=== PATIENT | female | born 2000 | race Caucasian/White ===

== ENCOUNTER 2021-08-22 06:49 | Inpatient (IN) ==
--- NOTE | 2021-08-22 07:41 | Emergency Department Note ---
History of Present Illness General Chief complaint: Mental Health Evaluation Stated complaint: MHID, THOUGHTS OF SELF HARM Time Seen by Provider: 08/22/21 07:06 History of Present Illness 20-year-old female presents to the ED with a chief complaint of depression and suicidal ideation. The patient states that she has been depressed for weeks. She states that she graduated from college with a degree in criminal justice. She states that she planned to go to law school but did not get in. She reports that she is depressed about her future. She feels like she is not living up to her own expectations or the expectations of others. She is not sleeping well. She has been considering overdosing and possibly killing herself on Benadryl. The patient does report a history of family bipolar disease in her mother. She states that she feels like she might have the same. She was seen earlier this morning after becoming intoxicated. Her blood alcohol level was a little over 200. She states that she was discharged but just sat in the waiting room and then check back in for her mental health. Home Medications Medication Instructions Recorded Confirmed Type L norgest/E estradiol-E estrad 1 tab PO QAM 04/26/20 08/22/21 History 0.15 mg-30 mcg (84)/10 mcg(7) tabs,3mos (Camrese) Allergies Allergy/AdvReac Type Severity Reaction Status Date / Time No Known Allergies Allergy Verified 08/11/21 14:24 Past Med/Surg History Medical History History of kidney infection History of UTI Migraine without aura Surgical History No history of previous surgery S/P wisdom tooth extraction Family History Mother Breast cancer, Onset Age: 46 reports got genetic testing and was neg Aunt Breast cancer great aunt Denies family history of Ovarian cancer Colorectal cancer Uterine cancer Social History Smoking Status: Current every day smoker Tobacco Type: E-cigarettes / Vaping Preferred Language: Korean Feels Safe at Home: Yes Review of Systems A total of 10 systems reviewed and were otherwise negative Physical Exam Vital Signs Vital Signs - 24 hr 08/22/21 06:53 08/22/21 12:00 Temperature 36.9 C Temperature Source Skin Pulse Rate 100 H Pulse Rate [Finger] 92 H Respiratory Rate 18 16 Blood Pressure 124/77 Blood Pressure [Left Arm] 110/75 Blood Pressure Mean 92 Blood Pressure Mean [Left Arm] 86 Pulse Oximetry 98 98 Oxygen Delivery Method Room Air Room Air Sepsis Recent Fever Within 48 Hours No Sepsis New/Unexplained Change in Mental Status No Sepsis Action Taken by Nursing No Action Required CONSTITUTIONAL/VITAL SIGNS: Reviewed / noted above. GENERAL: Non-toxic in appearance. INTEGUMENTARY: Warm, dry, and [place]. HEAD: Normocephalic. EYES: without scleral icterus or trauma. ENT/OROPHARYNX: clear and moist. LYMPHADENOPATHY/NECK: Is supple without lymphadenopathy or meningismus. RESPIRATORY: Clear to auscultation bilaterally. No increased work of breathing. CARDIOVASCULAR: Regular rate and rhythm. GI/ABDOMEN: Soft and nontender. No organomegaly or pulsatile mass. EXTREMITIES: Warm and well perfused. BACK: No CVA tenderness. NEUROLOGICAL: Intact without focal deficits. PSYCHIATRIC: Depressed and tearful affect. MUSCULOSKELETAL: Normally developed with good muscle tone. TRIAGE NURSING DOCUMENTATION REVIEWED. Medical Decision Making Medical Records Attestation: I reviewed the patient's medical records. Home Medications Current Medication List: was personally reviewed by me Laboratory Data Attestation: I reviewed the patient's lab results. Result diagrams: 08/22/21 07:48 08/22/21 07:48 Lab Results 08/22/21 08/22/21 08/22/21 Range/Units 07:48 07:48 07:48 WBC 11.47 H (4.8-10.8) K/uL RBC 4.58 (4.2-5.4) M/uL Hgb 14.3 (12.0-16.0) g/dL Hct 41.8 (37-47) % MCV 91.3 (80-100) fL MCH 31.2 (25-34) pg MCHC 34.2 (32-36) g/dL RDW Std Deviation 46.6 H (36.4-46.3) fL RDW Coeff of Sybil 13.9 (11.5-14.5) % Plt Count 353 (130-400) K/uL MPV 10.3 (7.4-10.4) fL Immature Gran % (Auto) 0.2 % Neut % (Auto) 65.1 % Lymph % (Auto) 30.3 % Hyde % (Auto) 4.2 % Eos % (Auto) 0.0 % Baso % (Auto) 0.2 % Neut # (Auto) 7.47 H (1.4-6.5) K/uL Lymph # (Auto) 3.48 H (1.2-3.4) K/uL Hyde # (Auto) 0.48 (0.11-0.59) K/uL Eos # (Auto) 0.00 (0-0.5) K/uL Baso # (Auto) 0.02 (0-0.2) K/uL Immature Gran # (Auto) 0.02 (0.00-0.02) K/uL Sodium 141 (136-145) mmol/L Potassium 4.0 (3.5-5.1) mmol/L Chloride 107 (98-107) mmol/L Carbon Dioxide 25 (21-32) mmol/L Anion Gap 9 (3-11) BUN 10 (6-23) mg/dl Creatinine 0.57 L (0.6-1.2) mg/dl Est Cr Clr Drug Dosing 109.5 ml/min Est GFR ( Amer) > 150.0 ml/min Est GFR (Non-Af Amer) 131.6 ml/min BUN/Creatinine Ratio 17.5 (10-20) Glucose 86 (70-99(Fasting)) mg/dl Calcium 8.9 (8.5-10.1) mg/dl Total Bilirubin 0.3 (0.2-1.0) mg/dl AST 17 (13-39) U/L ALT 11 (7-52) U/L Alkaline Phosphatase 36 (34-104) U/L Total Protein 7.8 (6.0-8.3) gm/dl Albumin 4.5 (3.4-5.0) gm/dl Globulin 3.3 (2.5-4.0) gm/dl Albumin/Globulin Ratio 1.4 (0.9-2) TSH 1.750 (0.300-4.500) uIu/ml HCG, Qual (Negative) Urine Color Urine Appearance (Clear) Urine pH (4.5-7.5) Ur Specific [place] (1.000-1.030) Urine Protein (Negative) Urine Glucose (UA) (Negative) Urine Ketones (Negative) Urine Blood (Negative) Urine Nitrite (Negative) Urine Bilirubin (Negative) Urine Urobilinogen (Negative) Ur Leukocyte Esterase (Negative) Urine WBC (Auto) (0-5) /hpf Urine RBC (Auto) (0-4) /hpf U Hyaline Cast (Auto) (0-5) /lpf U Epithel Cells (Auto) (0-5) /lpf Urine Bacteria (Auto) (Negative) Salicylates (3.0-30) mg/dl Urine Opiates Screen (Neg) Ur Methadone, Qual (Neg) Acetaminophen (10-30) ug/ml Urine Barbiturates (Neg) Ur Phencyclidine (PCP) (Neg) U Amphetamin/Meth Scrn (Neg) MDMA (Ecstasy) Screen (Neg) U Benzodiazepines Scrn (Neg) Ur Cocaine Metabolite (Neg) U Marijuana (THC) Screen (Neg) Ethyl Alcohol mg/dL (<10.0) mg/dl SARS-CoV-2, RNA, NAAT (NEGATIVE) 08/22/21 08/22/21 08/22/21 Range/Units 07:48 07:48 07:48 WBC (4.8-10.8) K/uL RBC (4.2-5.4) M/uL Hgb (12.0-16.0) g/dL Hct (37-47) % MCV (80-100) fL MCH (25-34) pg MCHC (32-36) g/dL RDW Std Deviation (36.4-46.3) fL RDW Coeff of Sybil (11.5-14.5) % Plt Count (130-400) K/uL MPV (7.4-10.4) fL Immature Gran % (Auto) % Neut % (Auto) % Lymph % (Auto) % Hyde % (Auto) % Eos % (Auto) % Baso % (Auto) % Neut # (Auto) (1.4-6.5) K/uL Lymph # (Auto) (1.2-3.4) K/uL Hyde # (Auto) (0.11-0.59) K/uL Eos # (Auto) (0-0.5) K/uL Baso # (Auto) (0-0.2) K/uL Immature Gran # (Auto) (0.00-0.02) K/uL Sodium (136-145) mmol/L Potassium (3.5-5.1) mmol/L Chloride (98-107) mmol/L Carbon Dioxide (21-32) mmol/L Anion Gap (3-11) BUN (6-23) mg/dl Creatinine (0.6-1.2) mg/dl Est Cr Clr Drug Dosing ml/min Est GFR ( Amer) ml/min Est GFR (Non-Af Amer) ml/min BUN/Creatinine Ratio (10-20) Glucose (70-99(Fasting)) mg/dl Calcium (8.5-10.1) mg/dl Total Bilirubin (0.2-1.0) mg/dl AST (13-39) U/L ALT (7-52) U/L Alkaline Phosphatase (34-104) U/L Total Protein (6.0-8.3) gm/dl Albumin (3.4-5.0) gm/dl Globulin (2.5-4.0) gm/dl Albumin/Globulin Ratio (0.9-2) TSH (0.300-4.500) uIu/ml HCG, Qual Negative (Negative) Urine Color Urine Appearance (Clear) Urine pH (4.5-7.5) Ur Specific [place] (1.000-1.030) Urine Protein (Negative) Urine Glucose (UA) (Negative) Urine Ketones (Negative) Urine Blood (Negative) Urine Nitrite (Negative) Urine Bilirubin (Negative) Urine Urobilinogen (Negative) Ur Leukocyte Esterase (Negative) Urine WBC (Auto) (0-5) /hpf Urine RBC (Auto) (0-4) /hpf U Hyaline Cast (Auto) (0-5) /lpf U Epithel Cells (Auto) (0-5) /lpf Urine Bacteria (Auto) (Negative) Salicylates < 3.0 L (3.0-30) mg/dl Urine Opiates Screen (Neg) Ur Methadone, Qual (Neg) Acetaminophen < 3 L (10-30) ug/ml Urine Barbiturates (Neg) Ur Phencyclidine (PCP) (Neg) U Amphetamin/Meth Scrn (Neg) MDMA (Ecstasy) Screen (Neg) U Benzodiazepines Scrn (Neg) Ur Cocaine Metabolite (Neg) U Marijuana (THC) Screen (Neg) Ethyl Alcohol mg/dL 144.6 H (<10.0) mg/dl SARS-CoV-2, RNA, NAAT (NEGATIVE) 08/22/21 08/22/21 08/22/21 Range/Units 07:50 12:20 12:20 WBC (4.8-10.8) K/uL RBC (4.2-5.4) M/uL Hgb (12.0-16.0) g/dL Hct (37-47) % MCV (80-100) fL MCH (25-34) pg MCHC (32-36) g/dL RDW Std Deviation (36.4-46.3) fL RDW Coeff of Sybil (11.5-14.5) % Plt Count (130-400) K/uL MPV (7.4-10.4) fL Immature Gran % (Auto) % Neut % (Auto) % Lymph % (Auto) % Hyde % (Auto) % Eos % (Auto) % Baso % (Auto) % Neut # (Auto) (1.4-6.5) K/uL Lymph # (Auto) (1.2-3.4) K/uL Hyde # (Auto) (0.11-0.59) K/uL Eos # (Auto) (0-0.5) K/uL Baso # (Auto) (0-0.2) K/uL Immature Gran # (Auto) (0.00-0.02) K/uL Sodium (136-145) mmol/L Potassium (3.5-5.1) mmol/L Chloride (98-107) mmol/L Carbon Dioxide (21-32) mmol/L Anion Gap (3-11) BUN (6-23) mg/dl Creatinine (0.6-1.2) mg/dl Est Cr Clr Drug Dosing ml/min Est GFR ( Amer) ml/min Est GFR (Non-Af Amer) ml/min BUN/Creatinine Ratio (10-20) Glucose (70-99(Fasting)) mg/dl Calcium (8.5-10.1) mg/dl Total Bilirubin (0.2-1.0) mg/dl AST (13-39) U/L ALT (7-52) U/L Alkaline Phosphatase (34-104) U/L Total Protein (6.0-8.3) gm/dl Albumin (3.4-5.0) gm/dl Globulin (2.5-4.0) gm/dl Albumin/Globulin Ratio (0.9-2) TSH (0.300-4.500) uIu/ml HCG, Qual (Negative) Urine Color Yellow Urine Appearance Clear (Clear) Urine pH 6.0 (4.5-7.5) Ur Specific [place] 1.020 (1.000-1.030) Urine Protein Trace H (Negative) Urine Glucose (UA) Negative (Negative) Urine Ketones Negative (Negative) Urine Blood Trace H (Negative) Urine Nitrite Negative (Negative) Urine Bilirubin Negative (Negative) Urine Urobilinogen Negative (Negative) Ur Leukocyte Esterase Negative (Negative) Urine WBC (Auto) 1-5 (0-5) /hpf Urine RBC (Auto) 5-10 H (0-4) /hpf U Hyaline Cast (Auto) 1-5 (0-5) /lpf U Epithel Cells (Auto) >30 H (0-5) /lpf Urine Bacteria (Auto) 1+ H (Negative) Salicylates (3.0-30) mg/dl Urine Opiates Screen Neg (Neg) Ur Methadone, Qual Neg (Neg) Acetaminophen (10-30) ug/ml Urine Barbiturates Neg (Neg) Ur Phencyclidine (PCP) Neg (Neg) U Amphetamin/Meth Scrn Neg (Neg) MDMA (Ecstasy) Screen Neg (Neg) U Benzodiazepines Scrn Neg (Neg) Ur Cocaine Metabolite Neg (Neg) U Marijuana (THC) Screen Neg (Neg) Ethyl Alcohol mg/dL (<10.0) mg/dl SARS-CoV-2, RNA, NAAT NEGATIVE (NEGATIVE) MDM Narrative Patient presents with some suicidal thoughts and depression related to school and life issues. Details are above. The patient is medically cleared. Laboratory studies have been reviewed. The patient is voluntary. Bed placement underway. Signed out to Dr. Singh. Impression & Plan Depression with suicidal ideation Discharge Plan Visit Data Chief Complaint: Mental Health Evaluation Stated Complaint: MHID, THOUGHTS OF SELF HARM ED Provider: Maximilian Arriaga Discharge Problem: Depression with suicidal ideation Forms Stand Alone Forms: My [facility], Suicide Prevention Resources Prescriptions Prescriptions: No Action L norgest/e.estradiol-e.estrad [Camrese] 0.15 mg-30 mcg (84)/10 mcg (7) Tablets,Dose Pack,3 Month 1 tab PO QAM RF: 0 Referrals Referrals: Melissa Cloud [Primary Care Provider] -
[2021-08-22 08:02] LABS: Basophils # (auto) 0.02 K/uL (0-0.2); Basophils % (auto) 0.2 %; Hematocrit (blood only) 41.8 % (37-47); Hemoglobin 14.3 g/dL (12.0-16.0); Immature Granulocytes # (auto) 0.02 K/uL (0.00-0.02); Immature Granulocytes % (auto) 0.2 %; Lymphocytes # (auto) 3.48 K/uL (1.2-3.4); Lymphocytes % (auto) 30.3 %; Mean Corpuscular Hemoglobin 31.2 pg (25-34); Mean Corpuscular Hgb Conc 34.2 g/dL (32-36); Mean Corpuscular Volume 91.3 fL (80-100); Mean Platelet Volume 10.3 fL (7.4-10.4); Monocytes # (auto) 0.48 K/uL (0.11-0.59); Monocytes % (auto) 4.2 %; Neutrophils # (auto) 7.47 K/uL (1.4-6.5); Neutrophils % (auto) 65.1 %; Platelet Count 353 K/uL (130-400); RDW Coefficient of Variation 13.9 % (11.5-14.5); RDW Standard Deviation 46.6 fL (36.4-46.3); Red Blood Count 4.58 M/uL (4.2-5.4); White Blood Count 11.47 K/uL (4.8-10.8)
[2021-08-22 08:25] LABS: Alanine Aminotransferase 11 U/L (7-52); Albumin Globulin Ratio 1.4 (0.9-2); Albumin Level 4.5 gm/dl (3.4-5.0); Alkaline Phosphatase 36 U/L (34-104); Anion Gap 9 (3-11); Aspartate Aminotransferase 17 U/L (13-39); BUN Creatinine Ratio 17.5 (10-20); Bilirubin,Total 0.3 mg/dl (0.2-1.0); Blood Urea Nitrogen 10 mg/dl (6-23); Calcium 8.9 mg/dl (8.5-10.1); Carbon Dioxide 25 mmol/L (21-32); Chloride 107 mmol/L (98-107); Creatinine Clr Calc Pharmacy 109.5 ml/min; Est GFR (African American) > 150.0 ml/min; Est GFR (Non-African American) 131.6 ml/min; Globulin 3.3 gm/dl (2.5-4.0); Glucose 86 mg/dl (70-99(Fasting)); Sodium 141 mmol/L (136-145); Total Protein 7.8 gm/dl (6.0-8.3)
[2021-08-22 08:27] LABS: Pregnancy Test, Serum Negative (Negative)
[2021-08-22 08:38] LABS: Acetaminophen < 3 ug/ml (10-30); Salicylate < 3.0 mg/dl (3.0-30)
[2021-08-22 12:40] LABS: Appearance Urine Clear (Clear); Bacteria Urine Automated 1+ (Negative); Bilirubin Urine Negative (Negative); Blood Urine Trace (Negative); Color Urine Yellow; Epithelial Cell Urine Auto >30 /lpf (0-5); Glucose Urine UA Negative (Negative); Ketones Urine Negative (Negative); Leukocyte Esterase Urine Negative (Negative); Nitrite Urine Negative (Negative); Protein Urine Trace (Negative); Urobilinogen Urine Negative (Negative)
[2021-08-22 13:19] LABS: Amphetamines+Metham, Urine Neg (Neg); Barbiturates, Urine Neg (Neg); Benzodiazepine, Urine Neg (Neg); Cocaine, Urine Neg (Neg); MDMA (Ecstacy), Urine Neg (Neg); Methadone, Urine Neg (Neg); Opiate, Urine Neg (Neg); Phencyclidine, Urine Neg (Neg)
[2021-08-22] MEDS ORDERED: BISMUTH SUBSALICYLATE LIQD 236 ML PO PRN (15:45)
[2021-08-22] MEDS ORDERED: ALUMINUM/MAGNESIUM SUSP 30 ML UDC PO PRN (15:45)
[2021-08-22] MEDS ORDERED: hydrOXYzine HCl 25 MG TAB PO PRN ×2 (15:45)
[2021-08-22] MEDS ORDERED: MAGNESIUM HYDROXIDE SUSP 30 ML UDC PO PRN (15:45)
[2021-08-22] MEDS ORDERED: ACETAMINOPHEN 325 MG TAB PO PRN (15:45)
[2021-08-22] MEDS ORDERED: SODIUM CHLORIDE 0.65% NA SOLN 45 ML (OCEAN) PRN (15:45)
--- NOTE | 2021-08-22 15:48 | Emergency Department Note ---
ED Visit Note Patient was signed out to me at change of shift by Dr. Arriaga, she is pending evaluation for placement at [facility] for suicidal thoughts and alcohol intoxication earlier today. Patient was assessed by case management, she is going to be a voluntary 201. On my assessment prior to transfer to [facility]. the patient is resting comfortably with her father in the room, she is in agreement for admission, she is otherwise in no acute distress. Patient was admitted to [facility]. in stable condition for further care as an inpatient psychiatric patient. .
[2021-08-22] MEDS ORDERED: NICOTINE POLACRILEX 2 MG GUM MT PRN (18:36)
[2021-08-22] MEDS: NICOTINE 14 MG/24 HR PATCH TD SCH (20:30)
--- NOTE | 2021-08-23 08:39 | History & Physical ---
Date of Service August 23, 2021 Impression / Recommendations Impression The patient is a 20 year old with a history of depression and alcohol use disorder, binge pattern who was admitted for worsening depression and SI with plan. Diagnostically consistent with major depressive disorder and binge drinking. The patient is deemed unstable and requires psychiatric hospitalization for diagnostic clarification, safety and stabilization, medication management and development of further coping skills. She is agreeable to starting outpatient therapy. Discussed medication treatment options in detail. Discussed risks, benefits and alternatives. Patient would like to start sertraline for MDD and trazodone for MDD and insomnia. Counseled on black box warning of potential for emergence of or increased SI and need to let staff know should this occur or should they feel unsafe. Also discussed importance of seeking emergency care following discharge if this side effect occurs in the future. Discussed risk for emergence of marta given family history and what symptoms to look for should this occur and need to stop medication and seek immediate medical attention should this occur. The patient's audit score and use history suggests problematic substance use. Brief intervention was offered and accepted. Intervention was greater than 5 minutes in length and included assessing readiness to quit, advice on how to reduce or abstain and to set a specific goal for this hospitalization. fast food worker will also assist in anticipating barriers to reducing or abstaining from substance use and in problem-solving for solutions to those problems while arranging for referral to appropriate treatment. The patient is in action stage with regards to transtheoretical model of change. The patient is advised to decrease consumption due to depressant effects and risk of interaction with prescription medications. The patient agreed to avoid alcohol use in the future and will be provided with recovery materials to continue to educate self on how to cope with their condition without using substances. (1) Major depressive disorder, recurrent, moderate: (2) Alcohol use disorder: (3) Depression with suicidal ideation: 08/23/21: The patient was admitted to the [facility] ([facility] mental health unit) on q15 min checks (behavioral with suicide precautions) for safety. The patient will participate in group, recreational, and milieu therapies and will be offered additional individual and family sessions as clinically appropriate. -sertraline 25mg qd -trazodone 25 mg qhs Inventory Assets Strengths: driven, hard worker, determined, willing to seek help and engage with outpatient services Needs: outpatient providers, medication, learn new coping skills Risk Factors Assessment Acute risk is high given major depressive episode with worsening SI. Most sign ificant modifiable risk factor is treating her major depressive disorder with medication, groups and then referral for outpatient therapy as well as avoiding future alcohol use. Chronic risk is low. Male: No : Yes Do You Have Access To A Gun?: No Health Problems: No Mental Health Diagnoses: Yes Substance Use Disorders: Yes Previous Attempt: No Family History of Suicide: No Previous Psychiatric Hospitalization: No Hopelessness: Yes Smoker: Yes Protective Factors Assessment Employed: Yes Stable Relationships: Yes Supportive Family: Yes Psychiatric History Identifying Data DAVID MARTINO is a 20-year-old woman who currently lives in an apartment with a roommate, and was admitted on 08/22/21 16:52 on a 201 voluntary commitment for worsening depression and SI with plan. Chief Complaint "I just did not care and it's never been this severe before". 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 She was hanging out with new co-workers drinking and notes that she usually gets emotional when she drinks and maybe "I snapped and it made other things come out, I was unable to suppress it and control it". She recalls "bits and pieces" from that night and remembers crying and running away from her friends and can't recall why they brought her to the ED. The ED told her she could go home once she was no longer intoxicated and she was talking to a friend but then she realized she didn't have shoes or a coat or keys. So she sat there trying to decide what to do if she went home but she thought it wouldn't be a good idea because "I was super depressed and would be alone and better to admit myself before I did something bad". She has been depressed since her senior year of high school with periods of severe depression that usually last a few weeks. She's always been very driven and wanted to get into the law school but it didn't happen and it left her without a solid plan which has added to stress. Other recent stressors include financial strain and being behind on rent, social isolation, and trying to come up with a plan for the future. She describes her depression as worsening over the last few weeks and that "I think I lost my patience (while drinking) and it's been brewing for a really long time". "Last week was the worst it's ever been." She describes depression symptoms of decreased motivation, feeling numb, anhedonia, low energy, decreased self-care/not showering. "Last week my head was "blank", I did not care and it's never been that severe before". Sleep has been poor with sleep onset insomnia, she tried taking a Benadryl sleep aide OTC which helped a little bit. She also had a bad migraine early in the week. Appetite has been decreased and she lost about 10lbs without trying. SI "I've kind of always had them", " I would never do that people of the people who love me but I've always thought about it". SI intensified this last week she denies having "a solid plan" but she notes she was having an intrusive thought of "just ran away, throw out my phone" and that resolved but then she had intense depression and felt like "why does it matter" and considered taking a lot of pills. No rehearsal behaviors, "it wasn't a solid plan". Psychiatric ROS notable for denial of current or history of anxiety; no history of marta, during freshman yr all nighter and stayed up for 3 days and "felt fine" but took an Adderall the first night and had one coffee (no risk taking, legal consequences, overspending) and then was able to sleep; no hx psychosis; no hx OCD; no hx restrictive eating or eating disorder. Past Psychiatric History Previous Psych History: none Outpatient Services: none Previous Psych Admissions: n/a Do You Have Access To A Gun?: No History of Previous Suicide Attempt: No Past Medication Trials: none Additional Notes: no hx self-harm Past Head Trauma/Neuro History History of Concussion/Seizure: Yes (describes hx mild concussion from falling on ice ) Allergies Allergy/AdvReac Type Severity Reaction Status Date / Time No Known Allergies Allergy Verified 08/11/21 14:24 Home Medications Medication Instructions Recorded Confirmed Type L norgest/E estradiol-E estrad 1 tab PO QAM 04/26/20 08/22/21 History 0.15 mg-30 mcg (84)/10 mcg(7) tabs,3mos ([facility]) Family History Family History of: Alcoholism/Drug Abuse (mother with hx inpt residential tx and that was when she was diagnosed with BPAD; extensive on maternal side of family; father with freq alcohol use ) and Bipolar (mother; possible hx hospitalization for BPAD) Family Mental Health History Comment: Mother has a Bi-polar DX Alcohol History Hx of Alcohol Use Over the Past 12 Months: Yes (Rare/Occassional) AUDIT Total Score: 11 Drinks usually monthly, up until last night had not had a drink since New Years. Usually has >6 drinks beers/hard liquor usually to point of blacking out on occasions when she does drink. Smoking Use Have You Smoked or Used Tobacco Products in the Last 30 Days: Yes tobacco type: e-cigarettes Smoking Status: Current every day smoker Substance History Hx of Prescription Med Misuse Over the Past 12 Months: No Hx of Over the Counter Med Misuse Over the Past 12 Months: No Hx of Inhalent Misuse Over the Past 12 Months: No Hx of Organic Substance Use Over the Past 12 Months: No Hx of Illegal Substances/Street Drug Use Over Past 12 Months: No Problems as a Result of Past Substance Use: None Identified took Adderall a few times, been over a year since she took it Personal History Living Arrangements: Apartment (with roommate) Childhood: Grew up in [facility]. Parents are . Older sister. Good relationships with her mom, sister and dad. Employment Status: Student (Graduated in November 2020 and now working on an additional degree for sociology. Also about 20-30 hrs per week at [employer] ) Beliefs That Will Affect Care: None Current Legal Problems: Yes (she's unsure but possible charge may occur for public drunkenness ) Hx Legal Problems: No Hx Traumatic Life Events: No Additional Comments: Romantic relationship for 2 years. Patient History Medical History History of kidney infection History of UTI Migraine without aura Surgical History No history of previous surgery S/P wisdom tooth extraction Family History Mother Breast cancer, Onset Age: 46 reports got genetic testing and was neg Aunt Breast cancer great aunt Denies family history of Ovarian cancer Colorectal cancer Uterine cancer Social History Smoking Status: Current every day smoker Tobacco Type: E-cigarettes / Vaping Preferred Language: Taiwanese Communication Ability: Effective Sports Administrator Required: No Beliefs That Will Affect Care: None Feels Safe at Home: Yes Assistive Devices: None Review of Systems Review of Systems: All systems reviewed & are unremarkable except as noted in HPI & below (some intermittent chills then hot ) Physical Exam Psychiatric: Orientation: alert and oriented x 3 Apperance: appropriately dressed and appropriately groomed Eye Contact: good eye contact Motor Behavior: no abnormal motor movements Speech: normal rate/rhythm/volume of speech Affect: + depressed affect Mood: + depressed mood Thought Process: goal directed thought process Thought Content: reality based without delusions Suicidal Thoughts: denies suicidal thoughts Homicidal Thoughts: denies homicidal thoughts Hallucinations: no auditory hallucinations and no visual hallucinations Cognition: recent memory grossly intact, remote memory grossly intact, attention grossly intact and language grossly intact Estimated Intelligence: consistent with education level Insight: + fair insight Judgement: + fair judgement Vital Signs (Past 24 Hours): Last Vital Signs Temp 36.9 C 08/23/21 06:00 Pulse 83 08/23/21 06:43 Resp 14 08/23/21 06:00 BP 93/62 L 08/23/21 06:43 Pulse Ox 98 08/22/21 18:03 Exam Statement: A physical exam was performed in the ED by Dr. Arriaga for the purposes of medical clearance. I accept that physical as correct and adequate for the purposes of the inpatient physical exam. Results & Data ([facility]) Laboratory Results Laboratory Results - last 24 hr 08/22/21 08/22/21 08/22/21 07:48 12:20 12:20 TSH 1.750 Urine Color Yellow Urine Appearance Clear Urine pH 6.0 Ur Specific [place] 1.020 Urine Protein Trace H Urine Glucose (UA) Negative Urine Ketones Negative Urine Blood Trace H Urine Nitrite Negative Urine Bilirubin Negative Urine Urobilinogen Negative Ur Leukocyte Esterase Negative Urine WBC (Auto) 1-5 Urine RBC (Auto) 5-10 H U Hyaline Cast (Auto) 1-5 U Epithel Cells (Auto) >30 H Urine Bacteria (Auto) 1+ H Urine Opiates Screen Neg Ur Methadone, Qual Neg Urine Barbiturates Neg Ur Phencyclidine (PCP) Neg U Amphetamin/Meth Scrn Neg MDMA (Ecstasy) Screen Neg U Benzodiazepines Scrn Neg Ur Cocaine Metabolite Neg U Marijuana (THC) Screen Neg Current Inpatient Medications Current Inpatient Medications: Current Inpatient Medications Acetaminophen (Acetaminophen 325 Mg Tab) 650 mg PO Q4H PRN PRN Reason: Headache or Minor Fever Stop: 09/21/21 15:44 Al Hydrox/Mg Hydrox/Simethicone (Aluminum/Magnesium Susp 30 Ml Udc) 30 ml PO Q4H PRN PRN Reason: GI Upset Stop: 09/21/21 15:44 Bismuth Subsalicylate (Bismuth Subsalicylate Liqd 236 Ml) 15 ml PO PRN PRN PRN Reason: Loose Stool Stop: 09/21/21 15:44 Hydroxyzine HCl (Hydroxyzine Hcl 25 Mg Tab) 50 mg PO HSZ PRN PRN Reason: Insomnia Stop: 09/21/21 15:44 Last Admin: 08/22/21 23:50 Dose: 50 mg Documented by: Hydroxyzine HCl (Hydroxyzine Hcl 25 Mg Tab) 25 mg PO Q4H PRN PRN Reason: Anxiety Stop: 09/21/21 15:44 Magnesium Hydroxide (Magnesium Hydroxide Susp 30 Ml Udc) 30 ml PO DAILY PRN PRN Reason: Constipation Stop: 09/21/21 15:44 Miscellaneous (Remove Nicoderm Patch) 1 ea N/A DAILY@0859 [facility] Stop: 09/22/21 08:58 Nicotine (Nicotine 14 Mg/24 Hr Patch) 14 mg TD QAM [facility] Stop: 09/21/21 18:59 Last Admin: 08/22/21 20:30 Dose: 14 mg Documented by: Nicotine Polacrilex (Nicotine Polacrilex 2 Mg Gum) 1 piece MT Q1HWA PRN PRN Reason: Nicotine withdrawl Stop: 09/21/21 18:35 Sodium Chloride (Sodium Chloride 0.65% Na Soln 45 Ml (Day)) 1 - 2 sprays NA PRN PRN PRN Reason: Nasal Dryness/Congestion Stop: 09/21/21 15:44
[2021-08-23] MEDS: NICOTINE 14 MG/24 HR PATCH TD SCH (11:26)
[2021-08-23] MEDS: SERTRALINE HCL 50 MG TABLET PO SCH (11:26)
[2021-08-23] MEDS: traZODone HCL 50 MG TAB PO SCH (22:57)
[2021-08-24] MEDS: NICOTINE 14 MG/24 HR PATCH TD SCH (08:44)
[2021-08-24] MEDS: SERTRALINE HCL 50 MG TABLET PO SCH (08:45)
--- NOTE | 2021-08-24 16:36 | Psychiatric Progress Note ---
Date of Service August 24, 2021 Impression / Recommendations Impression The patient is a 20 year old with a history of depression and alcohol use disorder, binge pattern who was admitted for worsening depression and SI with plan. Diagnostically consistent with major depressive disorder and binge drinking. The patient is deemed unstable and requires psychiatric hospitalization for diagnostic clarification, safety and stabilization, medication management and development of further coping skills. 08/24/21: tolerating initiation of sertraline and consents to further titration to 50mg qd. Sleep improved with trazodone though still took some time to fall asleep. Attending groups and working on developing more coping skills, still with depressed mood. (1) Major depressive disorder, recurrent, moderate: (2) Alcohol use disorder: (3) Depression with suicidal ideation: 08/24/21: Increase sertraline to 50mg qd. Continue trazodone 25mg qhs. Family meeting held with her sister. Motivated to avoid alcohol. 08/23/21: The patient was admitted to the [facility] ([facility] mental health unit) on q15 min checks (behavioral with suicide precautions) for safety. The patient will participate in group, recreational, and milieu therapies and will be offered additional individual and family sessions as clinically appropriate. -sertraline 25mg qd -trazodone 25 mg qhs Inventory Assets Strengths: driven, hard worker, determined, willing to seek help and engage with outpatient services Needs: outpatient providers, medication, learn new coping skills Risk Factors Assessment Male: No : Yes Do You Have Access To A Gun?: No Health Problems: No Mental Health Diagnoses: Yes Substance Use Disorders: Yes Previous Attempt: No Family History of Suicide: No Previous Psychiatric Hospitalization: No Hopelessness: Yes Smoker: Yes Protective Factors Assessment Employed: Yes Stable Relationships: Yes Supportive Family: Yes Interval History Identifying Information DAVID MARTINO is a 20-year-old woman who currently lives in an apartment with a roommate, and was admitted on 08/22/21 16:52 on a 201 voluntary commitment for worsening depression and SI with plan. Chief Complaint "I'm ok". Review of Systems Sleep Information Total Hours of Sleep: 6.25 Meal Information Percent Meal Consumed - Breakfast: 25 Percent Meal Consumed - Lunch: 90 Percent Meal Consumed - Dinner: 50 Nutrition Comment: states she doesn't typically eat right after waking up Subjective Subjective Patient was seen & assessed and interval progress reviewed with treatment team nursing and social work. She slept better last night after taking the trazodone and no grogginess this morning. She denies any side effects from the sertraline. Her mood remains somewhat low but no SI today. She had a family meeting via phone call with her sister which she feels went well. Attending groups and working on recovery book. Physical Exam Psychiatric Orientation: alert and oriented x 3 Apperance: appropriately dressed and appropriately groomed Eye Contact: good eye contact Motor Behavior: no abnormal motor movements Speech: normal rate/rhythm/volume of speech Affect: + depressed affect Mood: + depressed mood Thought Process: goal directed thought process Thought Content: reality based without delusions Suicidal Thoughts: denies suicidal thoughts Homicidal Thoughts: denies homicidal thoughts Hallucinations: no auditory hallucinations and no visual hallucinations Cognition: recent memory grossly intact, remote memory grossly intact, attention grossly intact and language grossly intact Estimated Intelligence: consistent with education level Insight: + fair insight Judgement: + fair judgement Vital Signs (Past 24 Hours) Last Vital Signs Temp 36.9 C 08/24/21 06:00 Pulse 71 08/24/21 06:50 Resp 14 08/24/21 06:00 BP 129/73 08/24/21 06:50 Pulse Ox 98 08/22/21 18:03 Results & Data ([facility]) Current Inpatient Medications Current Inpatient Medications: Current Inpatient Medications Acetaminophen (Acetaminophen 325 Mg Tab) 650 mg PO Q4H PRN PRN Reason: Headache or Minor Fever Stop: 09/21/21 15:44 Al Hydrox/Mg Hydrox/Simethicone (Aluminum/Magnesium Susp 30 Ml Udc) 30 ml PO Q4H PRN PRN Reason: GI Upset Stop: 09/21/21 15:44 Bismuth Subsalicylate (Bismuth Subsalicylate Liqd 236 Ml) 15 ml PO PRN PRN PRN Reason: Loose Stool Stop: 09/21/21 15:44 Hydroxyzine HCl (Hydroxyzine Hcl 25 Mg Tab) 50 mg PO HSZ PRN PRN Reason: Insomnia Stop: 09/21/21 15:44 Last Admin: 08/22/21 23:50 Dose: 50 mg Documented by: Hydroxyzine HCl (Hydroxyzine Hcl 25 Mg Tab) 25 mg PO Q4H PRN PRN Reason: Anxiety Stop: 09/21/21 15:44 Magnesium Hydroxide (Magnesium Hydroxide Susp 30 Ml Udc) 30 ml PO DAILY PRN PRN Reason: Constipation Stop: 09/21/21 15:44 Miscellaneous (Remove Nicoderm Patch) 1 ea N/A DAILY@0859 [facility] Stop: 09/22/21 08:58 Last Admin: 08/24/21 08:44 Dose: 1 ea Documented by: Nicotine (Nicotine 14 Mg/24 Hr Patch) 14 mg TD QAM [facility] Stop: 09/21/21 18:59 Last Admin: 08/24/21 08:44 Dose: 14 mg Documented by: Nicotine Polacrilex (Nicotine Polacrilex 2 Mg Gum) 1 piece MT Q1HWA PRN PRN Reason: Nicotine withdrawl Stop: 09/21/21 18:35 Sertraline HCl (Sertraline Hcl 50 Mg Tablet) 25 mg PO QAM [facility] Stop: 09/22/21 10:59 Last Admin: 08/24/21 08:45 Dose: 25 mg Documented by: Sodium Chloride (Sodium Chloride 0.65% Na Soln 45 Ml ([place])) 1 - 2 sprays NA PRN PRN PRN Reason: Nasal Dryness/Congestion Stop: 09/21/21 15:44 Trazodone HCl (Trazodone Hcl 50 Mg Tab) 25 mg PO HS [facility] Stop: 09/22/21 21:59 Last Admin: 08/23/21 22:57 Dose: 25 mg Documented by: Post Discharge Appointments Primary Care Physician Name Of Family Doctor: INOCENCIO Primary Care Provider Appointment Comment: [id number] [facility] Contact Information Discharge Discharge Address: [address] [place] [address], [address], [place], [place]
[2021-08-24] MEDS: traZODone HCL 50 MG TAB PO SCH (22:52)
[2021-08-25] MEDS: SERTRALINE HCL 50 MG TABLET PO SCH (08:43)
[2021-08-25] MEDS: NICOTINE 14 MG/24 HR PATCH TD SCH (08:43)
[2021-08-25] MEDS ORDERED: SERTRALINE HCL 50 MG TABLET PO ONE (09:01)
[2021-08-25] MEDS: IBUPROFEN 600 MG TAB PO PRN (11:14)
--- NOTE | 2021-08-25 14:07 | Psychiatric Progress Note ---
Date of Service August 25, 2021 Impression / Recommendations Impression The patient is a 20 year old with a history of depression and alcohol use disorder, binge pattern who was admitted for worsening depression and SI with plan. Diagnostically consistent with major depressive disorder and binge drinking. The patient is deemed unstable and requires psychiatric hospitalization for diagnostic clarification, safety and stabilization, medication management and development of further coping skills. 08/25/21: tolerating titration of sertraline. Sleep remains difficult so discussed option to further titrate trazodone which she consents to. Attending groups and working on developing more coping skills, still with depressed mood but slow improvements. Ongoing motivational interviewing regarding alcohol use, she remains in contemplation/action stage of planning to avoid any future use. (1) Major depressive disorder, recurrent, moderate: (2) Alcohol use disorder: (3) Depression with suicidal ideation: 08/25/21: Continue sertraline 50mg qd. Increase trazodone to 50mg qhs for insomnia. Ongoing motivational interviewing. 08/24/21: Increase sertraline to 50mg qd. Continue trazodone 25mg qhs. Family meeting held with her sister. Remains motivated to avoid alcohol. 08/23/21: The patient was admitted to [facility] on q15 min checks (behavioral with suicide precautions) for safety. The patient will participate in group, recreational, and milieu therapies and will be offered additional individual and family sessions as clinically appropriate. -sertraline 25mg qd -trazodone 25 mg qhs Inventory Assets Strengths: driven, hard worker, determined, willing to seek help and engage with outpatient services Needs: outpatient providers, medication, learn new coping skills Risk Factors Assessment Male: No : Yes Do You Have Access To A Gun?: No Health Problems: No Mental Health Diagnoses: Yes Substance Use Disorders: Yes Previous Attempt: No Family History of Suicide: No Previous Psychiatric Hospitalization: No Hopelessness: Yes Smoker: Yes Protective Factors Assessment Employed: Yes Stable Relationships: Yes Supportive Family: Yes Interval History Identifying Information DAVID MARTINO is a 20-year-old woman who currently lives in an apartment with a roommate, and was admitted on 08/22/21 16:52 on a 201 voluntary commitment for worsening depression and SI with plan. Chief Complaint "I'm ok". Review of Systems Sleep Information Total Hours of Sleep: 6.5 Meal Information Percent Meal Consumed - Breakfast: 50 Percent Meal Consumed - Lunch: 100 Percent Meal Consumed - Dinner: 90 Nutrition Comment: states she doesn't typically eat right after waking up Subjective Subjective Patient was seen & assessed and interval progress reviewed with treatment team nursing and social work. Actively participating in groups and encouraging toward peers. Increased dose of sertraline this morning which she is tolerating without any side effects except more vivid dreams which she finds non-problematic. She continues to have difficulty falling and staying asleep. Denies SI. Having slight migraine and menstrual cramps today. Reviewed letter she got from [facility] regarding need to enroll in alcohol use program, she is planning to call them today to discuss this and schedule any necessary follow-up. Denies any other concerns or questions. Physical Exam Psychiatric Orientation: alert and oriented x 3 Apperance: appropriately dressed and appropriately groomed Eye Contact: good eye contact Motor Behavior: no abnormal motor movements Speech: normal rate/rhythm/volume of speech Affect: + depressed affect Mood: + depressed mood Thought Process: goal directed thought process Thought Content: reality based without delusions Suicidal Thoughts: denies suicidal thoughts Homicidal Thoughts: denies homicidal thoughts Hallucinations: no auditory hallucinations and no visual hallucinations Cognition: recent memory grossly intact, remote memory grossly intact, attention grossly intact and language grossly intact Estimated Intelligence: consistent with education level Insight: + fair insight Judgement: + fair judgement Vital Signs (Past 24 Hours) Last Vital Signs Temp 36.9 C 08/25/21 06:56 Pulse 79 08/25/21 06:57 Resp 16 08/25/21 06:56 BP 99/66 L 08/25/21 06:57 Pulse Ox 98 08/22/21 18:03 Results & Data ([facility]) Current Inpatient Medications Current Inpatient Medications: Current Inpatient Medications Acetaminophen (Acetaminophen 325 Mg Tab) 650 mg PO Q4H PRN PRN Reason: Headache or Minor Fever Stop: 09/21/21 15:44 Al Hydrox/Mg Hydrox/Simethicone (Aluminum/Magnesium Susp 30 Ml Udc) 30 ml PO Q4H PRN PRN Reason: GI Upset Stop: 09/21/21 15:44 Bismuth Subsalicylate (Bismuth Subsalicylate Liqd 236 Ml) 15 ml PO PRN PRN PRN Reason: Loose Stool Stop: 09/21/21 15:44 Hydroxyzine HCl (Hydroxyzine Hcl 25 Mg Tab) 50 mg PO HSZ PRN PRN Reason: Insomnia Stop: 09/21/21 15:44 Last Admin: 08/22/21 23:50 Dose: 50 mg Documented by: Hydroxyzine HCl (Hydroxyzine Hcl 25 Mg Tab) 25 mg PO Q4H PRN PRN Reason: Anxiety Stop: 09/21/21 15:44 Ibuprofen (Ibuprofen 600 Mg Tab) 600 mg PO Q8H PRN PRN Reason: pain Stop: 09/24/21 10:40 Last Admin: 08/25/21 11:14 Dose: 600 mg Documented by: Magnesium Hydroxide (Magnesium Hydroxide Susp 30 Ml Udc) 30 ml PO DAILY PRN PRN Reason: Constipation Stop: 09/21/21 15:44 Miscellaneous (Remove Nicoderm Patch) 1 ea N/A DAILY@0859 [facility] Stop: 09/22/21 08:58 Last Admin: 08/25/21 08:43 Dose: 1 ea Documented by: Nicotine (Nicotine 14 Mg/24 Hr Patch) 14 mg TD QAM MCKAY Stop: 09/21/21 18:59 Last Admin: 08/25/21 08:43 Dose: 14 mg Documented by: Nicotine Polacrilex (Nicotine Polacrilex 2 Mg Gum) 1 piece MT Q1HWA PRN PRN Reason: Nicotine withdrawl Stop: 09/21/21 18:35 Sertraline HCl (Sertraline Hcl 50 Mg Tablet) 50 mg PO QAM MCKAY Stop: 09/25/21 08:59 Sodium Chloride (Sodium Chloride 0.65% Na Soln 45 Ml ([place])) 1 - 2 sprays NA PRN PRN PRN Reason: Nasal Dryness/Congestion Stop: 09/21/21 15:44 Trazodone HCl (Trazodone Hcl 50 Mg Tab) 25 mg PO HS MCKAY Stop: 09/22/21 21:59 Last Admin: 08/24/21 22:52 Dose: 25 mg Documented by: Mental Health & Subst Abuse Tx Therapist Name of Therapist: Romana Higuera Therapist's Date of Therapist Appointment: 09/02/21 Time of Therapist Appointment: 9:30 a.m. Therapy Appointment Comment: [address] [facility], [address], [place] Post Discharge Appointments Primary Care Physician Name Of Family Doctor: INOCENCIO Primary Care Time of Appointment with PCP: Please follow up as needed Provider Appointment Comment: [address] [place] Contact Information Discharge Discharge Address: [id number] [facility] [place], [place]
[2021-08-25] MEDS: traZODone HCL 50 MG TAB PO SCH (22:29)
[2021-08-26] MEDS: SERTRALINE HCL 50 MG TABLET PO SCH (09:06)
[2021-08-26] MEDS: NICOTINE 14 MG/24 HR PATCH TD SCH (09:06)
[2021-08-26] MEDS: IBUPROFEN 600 MG TAB PO PRN (14:03)
--- NOTE | 2021-08-26 16:02 | Psychiatric Progress Note ---
Date of Service August 26, 2021 Impression / Recommendations Impression The patient is a 20 year old with a history of depression and alcohol use disorder, binge pattern who was admitted for worsening depression and SI with plan. Diagnostically consistent with major depressive disorder and binge drinking. The patient is deemed unstable and requires psychiatric hospitalization for diagnostic clarification, safety and stabilization, medication management and development of further coping skills. 08/26/21: Improvement in sleep and mood and tolerating higher dose of trazodone and found it helpful. Ongoing motivational interviewing regarding alcohol use, she remains in contemplation/action stage of planning to avoid any future use. (1) Major depressive disorder, recurrent, moderate: (2) Alcohol use disorder: (3) Depression with suicidal ideation: 08/26/21: Continue sertraline 50mg qd and trazodone 50mg qhs. Has been reflecting in groups and with [facility] counselors on ideas and steps for future career plans. 08/25/21: Continue sertraline 50mg qd. Increase trazodone to 50mg qhs for insomnia. Ongoing motivational interviewing. 08/24/21: Increase sertraline to 50mg qd. Continue trazodone 25mg qhs. Family meeting held with her sister. Remains motivated to avoid alcohol. 08/23/21: The patient was admitted to the [facility] ([facility]) on q15 min checks (behavioral with suicide precautions) for safety. The patient will participate in group, recreational, and milieu therapies and will be offered additional individual and family sessions as clinically appropriate. -sertraline 25mg qd -trazodone 25 mg qhs Inventory Assets Strengths: driven, hard worker, determined, willing to seek help and engage with outpatient services Needs: outpatient providers, medication, learn new coping skills Risk Factors Assessment Male: No : Yes Do You Have Access To A Gun?: No Health Problems: No Mental Health Diagnoses: Yes Substance Use Disorders: Yes Previous Attempt: No Family History of Suicide: No Previous Psychiatric Hospitalization: No Hopelessness: Yes Smoker: Yes Protective Factors Assessment Employed: Yes Stable Relationships: Yes Supportive Family: Yes Interval History Identifying Information DAVID MARTINO is a 20-year-old woman who currently lives in an apartment with a roommate, and was admitted on 08/22/21 16:52 on a 201 voluntary commitment for worsening depression and SI with plan. Chief Complaint "I'm ok, I have a migraine today". Review of Systems Sleep Information Total Hours of Sleep: 6.5 Sleep Comments: pt given trazodone per rn. pt on q-15 minute checks Meal Information Percent Meal Consumed - Breakfast: 100 Percent Meal Consumed - Lunch: 95 Percent Meal Consumed - Dinner: 95 Nutrition Comment: states she doesn't typically eat right after waking up Subjective Subjective Patient was seen & assessed and interval progress reviewed with treatment team nursing and social work. Alla reports stable mood and denies SI. She slept well last night and fell asleep quickly with the higher dose of trazodone and no side effects. Has a migraine today that she feels was building over the last week, prefers not to take any medication for it. Tolerating sertraline well without any other side effects. Remains engaged with the groups. Physical Exam Psychiatric Orientation: alert and oriented x 3 Apperance: appropriately dressed and appropriately groomed Eye Contact: good eye contact Motor Behavior: no abnormal motor movements Speech: normal rate/rhythm/volume of speech Affect: + constricted affect Mood: no depressed mood and no anxious mood Thought Process: goal directed thought process Thought Content: reality based without delusions Suicidal Thoughts: denies suicidal thoughts Homicidal Thoughts: denies homicidal thoughts Hallucinations: no auditory hallucinations and no visual hallucinations Cognition: recent memory grossly intact, remote memory grossly intact, attention grossly intact and language grossly intact Estimated Intelligence: consistent with education level Insight: + fair insight Judgement: + fair judgement Vital Signs (Past 24 Hours) Last Vital Signs Temp 36.6 C 08/26/21 07:02 Pulse 80 08/26/21 07:03 Resp 16 08/26/21 07:02 BP 102/69 08/26/21 07:03 Pulse Ox 98 08/22/21 18:03 Results & Data ([facility]) Current Inpatient Medications Current Inpatient Medications: Current Inpatient Medications Acetaminophen (Acetaminophen 325 Mg Tab) 650 mg PO Q4H PRN PRN Reason: Headache or Minor Fever Stop: 09/21/21 15:44 Al Hydrox/Mg Hydrox/Simethicone (Aluminum/Magnesium Susp 30 Ml Udc) 30 ml PO Q4H PRN PRN Reason: GI Upset Stop: 09/21/21 15:44 Bismuth Subsalicylate (Bismuth Subsalicylate Liqd 236 Ml) 15 ml PO PRN PRN PRN Reason: Loose Stool Stop: 09/21/21 15:44 Hydroxyzine HCl (Hydroxyzine Hcl 25 Mg Tab) 50 mg PO HSZ PRN PRN Reason: Insomnia Stop: 09/21/21 15:44 Last Admin: 08/22/21 23:50 Dose: 50 mg Documented by: Hydroxyzine HCl (Hydroxyzine Hcl 25 Mg Tab) 25 mg PO Q4H PRN PRN Reason: Anxiety Stop: 09/21/21 15:44 Ibuprofen (Ibuprofen 600 Mg Tab) 600 mg PO Q8H PRN PRN Reason: pain Stop: 09/24/21 10:40 Last Admin: 08/26/21 14:03 Dose: 600 mg Documented by: Magnesium Hydroxide (Magnesium Hydroxide Susp 30 Ml Udc) 30 ml PO DAILY PRN PRN Reason: Constipation Stop: 09/21/21 15:44 Miscellaneous (Remove Nicoderm Patch) 1 ea N/A DAILY@0859 [facility] Stop: 09/22/21 08:58 Last Admin: 08/26/21 09:07 Dose: 1 ea Documented by: Nicotine (Nicotine 14 Mg/24 Hr Patch) 14 mg TD QAM MCKAY Stop: 09/21/21 18:59 Last Admin: 08/26/21 09:06 Dose: 14 mg Documented by: Nicotine Polacrilex (Nicotine Polacrilex 2 Mg Gum) 1 piece MT Q1HWA PRN PRN Reason: Nicotine withdrawl Stop: 09/21/21 18:35 Sertraline HCl (Sertraline Hcl 50 Mg Tablet) 50 mg PO QAM MCKAY Stop: 09/25/21 08:59 Last Admin: 08/26/21 09:06 Dose: 50 mg Documented by: Sodium Chloride (Sodium Chloride 0.65% Na Soln 45 Ml ([place])) 1 - 2 sprays NA PRN PRN PRN Reason: Nasal Dryness/Congestion Stop: 09/21/21 15:44 Trazodone HCl (Trazodone Hcl 50 Mg Tab) 50 mg PO HS MCKAY Stop: 09/24/21 21:59 Last Admin: 08/25/21 22:29 Dose: 50 mg Documented by: Mental Health & Subst Abuse Tx Psychiatrist Name of Psychiatrist: Krystian Campbell Psychiatrist's Date of Appointment with Psychiatrist: 09/24/21 Time of Appointment with Psychiatrist: 10:15 AM Psychiatric Appointment Comment: [address] [facility] [address], [place] [address] Therapist Name of Therapist: Romana Higuera Therapist's Date of Therapist Appointment: 09/02/21 Time of Therapist Appointment: 9:30 a.m. Therapy Appointment Comment: [address] [facility], [address], [place] Post Discharge Appointments Primary Care Physician Name Of Family Doctor: INOCENCIO Primary Care Time of Appointment with PCP: Please follow up as needed Provider Appointment Comment: [address] [facility], [place] Contact Information Discharge Discharge Address: [address], [place], [place]
[2021-08-26] MEDS: traZODone HCL 50 MG TAB PO SCH (22:28)
[2021-08-27] MEDS: SERTRALINE HCL 50 MG TABLET PO SCH (09:30)
[2021-08-27] MEDS: NICOTINE 14 MG/24 HR PATCH TD SCH (09:33)
--- NOTE | 2021-08-27 10:54 | Discharge Summary ---
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 She was hanging out with new co-workers drinking and notes that she usually gets emotional when she drinks and maybe "I snapped and it made other things come out, I was unable to suppress it and control it". She recalls "bits and pieces" from that night and remembers crying and running away from her friends and can't recall why they brought her to the ED. The ED told her she could go home once she was no longer intoxicated and she was talking to a friend but then she realized she didn't have shoes or a coat or keys. So she sat there trying to decide what to do if she went home but she thought it wouldn't be a good idea because "I was super depressed and would be alone and better to admit myself before I did something bad". She has been depressed since her senior year of high school with periods of severe depression that usually last a few weeks. She's always been very driven and wanted to get into the law school but it didn't happen and it left her without a solid plan which has added to stress. Other recent stressors include financial strain and being behind on rent, social isolation, and trying to come up with a plan for the future. She describes her depression as worsening over the last few weeks and that "I think I lost my patience (while drinking) and it's been brewing for a really long time". "Last week was the worst it's ever been." She describes depression symptoms of decreased motivation, feeling numb, anhedonia, low energy, decreased self-care/not showering. "Last week my head was "blank", I did not care and it's never been that severe before". Sleep has been poor with sleep onset insomnia, she tried taking a Benadryl sleep aide OTC which helped a little bit. She also had a bad migraine early in the week. Appetite has been decreased and she lost about 10lbs without trying. SI "I've kind of always had them", " I would never do that people of the people who love me but I've always thought about it". SI intensified this last week she denies having "a solid plan" but she notes she was having an intrusive thought of "just ran away, throw out my phone" and that resolved but then she had intense depression and felt like "why does it matter" and considered taking a lot of pills. No rehearsal behaviors, "it wasn't a solid plan". Psychiatric ROS notable for denial of current or history of anxiety; no history of marta, during freshman yr all nighter and stayed up for 3 days and "felt fine" but took an Adderall the first night and had one coffee (no risk taking, legal consequences, overspending) and then was able to sleep; no hx psychosis; no hx OCD; no hx restrictive eating or eating disorder. Physical Exam Vital Signs (Past 24 Hours) Last Vital Signs Temp 36.7 C 08/27/21 10:33 Pulse 71 08/27/21 10:33 Resp 16 08/27/21 10:33 BP 104/68 08/27/21 10:33 Pulse Ox 98 08/27/21 10:33 See admission H&P and DOD summary. Principal Diagnosis Major Depressive Disorder Psychiatric Data See daily stay summary. In short, patient was engaged with the social/therapeutic milieu of the unit, safety was maintained and the patient was cooperative with care. Medication changes included initiation of sertraline for MDD and trazodone for insomnia and they tolerated this well. Motivational interviewing and recovery work was done during her stay and she remains motivated to avoid alcohol use after discharge, discussed option for MAT which she can discuss with her psychiatric provider should she find it difficult to abstain from alcohol use. A family session was held and safety plan was completed prior to discharge. Day of Discharge Assessment Today the patient voices readiness for discharge. They note improvement in mood and anxiety. They deny thoughts of harm to self or others. Thoughts are organized and they are clinically improved from admission. There is no evidence of psychosis. They improved in the hospital with support and medication adjustments. They agree to take medications as prescribed and keep follow-up appointments. At the time of the discharge they are deemed to be stable and ap propriate for outpatient level of care. They are not deemed to be at imminent risk of harm to self or others. They are aware of emergency and crisis services. Knows to call 911 or go to nearest emergency care center if in a crisis which cannot be handled as an outpatient. Transition of Care Transition Of Care Record: was reviewed with the patient Advance Directives Advance Directives Information Provided: Yes Advance Directives: No Mental Health Advance Directive: No Advance Directives on File: No Living Will: No Power of Roller Stainer: No Advance Directives Reason:: Declines as Mental Health Visit. Risk Factors Assessment Acute and chronic risk of self-harm are low given denial of SI, plan to avoid alcohol use, improvement in depressive symptoms, strong supports, and addition of outpatient providers. Male: No : Yes Do You Have Access To A Gun?: No Health Problems: No Mental Health Diagnoses: Yes Substance Use Disorders: Yes Previous Attempt: No Family History of Suicide: No Previous Psychiatric Hospitalization: No Hopelessness: No Smoker: Yes Protective Factors Assessment Employed: Yes Stable Relationships: Yes Supportive Family: Yes Tobacco Cessation at Discharge Tobacco Cessation Medication Prescribed at Discharge: Offered & Pt Refused Discharge Data Lab Results 08/22/21 08/22/21 08/22/21 07:48 07:48 07:48 WBC 11.47 H RBC 4.58 Hgb 14.3 Hct 41.8 MCV 91.3 MCH 31.2 MCHC 34.2 RDW Std Deviation 46.6 H RDW Coeff of Sybil 13.9 Plt Count 353 MPV 10.3 Immature Gran % (Auto) 0.2 Neut % (Auto) 65.1 Lymph % (Auto) 30.3 Hunt % (Auto) 4.2 Eos % (Auto) 0.0 Baso % (Auto) 0.2 Neut # (Auto) 7.47 H Lymph # (Auto) 3.48 H Hunt # (Auto) 0.48 Eos # (Auto) 0.00 Baso # (Auto) 0.02 Immature Gran # (Auto) 0.02 Sodium 141 Potassium 4.0 Chloride 107 Carbon Dioxide 25 Anion Gap 9 BUN 10 Creatinine 0.57 L Est Cr Clr Drug Dosing 109.5 Est GFR ( Amer) > 150.0 Est GFR (Non-Af Amer) 131.6 BUN/Creatinine Ratio 17.5 Glucose 86 Calcium 8.9 Total Bilirubin 0.3 AST 17 ALT 11 Alkaline Phosphatase 36 Total Protein 7.8 Albumin 4.5 Globulin 3.3 Albumin/Globulin Ratio 1.4 TSH 1.750 HCG, Qual Urine Color Urine Appearance Urine pH Ur Specific [place] Urine Protein Urine Glucose (UA) Urine Ketones Urine Blood Urine Nitrite Urine Bilirubin Urine Urobilinogen Ur Leukocyte Esterase Urine WBC (Auto) Urine RBC (Auto) U Hyaline Cast (Auto) U Epithel Cells (Auto) Urine Bacteria (Auto) Salicylates Urine Opiates Screen Ur Methadone, Qual Acetaminophen Urine Barbiturates Ur Phencyclidine (PCP) U Amphetamin/Meth Scrn MDMA (Ecstasy) Screen U Benzodiazepines Scrn Ur Cocaine Metabolite U Marijuana (THC) Screen Ethyl Alcohol mg/dL SARS-CoV-2, RNA, NAAT 08/22/21 08/22/21 08/22/21 07:48 07:48 07:48 WBC RBC Hgb Hct MCV MCH MCHC RDW Std Deviation RDW Coeff of Sybil Plt Count MPV Immature Gran % (Auto) Neut % (Auto) Lymph % (Auto) Hunt % (Auto) Eos % (Auto) Baso % (Auto) Neut # (Auto) Lymph # (Auto) Hunt # (Auto) Eos # (Auto) Baso # (Auto) Immature Gran # (Auto) Sodium Potassium Chloride Carbon Dioxide Anion Gap BUN Creatinine Est Cr Clr Drug Dosing Est GFR ( Amer) Est GFR (Non-Af Amer) BUN/Creatinine Ratio Glucose Calcium Total Bilirubin AST ALT Alkaline Phosphatase Total Protein Albumin Globulin Albumin/Globulin Ratio TSH HCG, Qual Negative Urine Color Urine Appearance Urine pH Ur Specific [place] Urine Protein Urine Glucose (UA) Urine Ketones Urine Blood Urine Nitrite Urine Bilirubin Urine Urobilinogen Ur Leukocyte Esterase Urine WBC (Auto) Urine RBC (Auto) U Hyaline Cast (Auto) U Epithel Cells (Auto) Urine Bacteria (Auto) Salicylates < 3.0 L Urine Opiates Screen Ur Methadone, Qual Acetaminophen < 3 L Urine Barbiturates Ur Phencyclidine (PCP) U Amphetamin/Meth Scrn MDMA (Ecstasy) Screen U Benzodiazepines Scrn Ur Cocaine Metabolite U Marijuana (THC) Screen Ethyl Alcohol mg/dL 144.6 H SARS-CoV-2, RNA, NAAT 08/22/21 08/22/21 08/22/21 07:50 12:20 12:20 WBC RBC Hgb Hct MCV MCH MCHC RDW Std Deviation RDW Coeff of Sybil Plt Count MPV Immature Gran % (Auto) Neut % (Auto) Lymph % (Auto) Hunt % (Auto) Eos % (Auto) Baso % (Auto) Neut # (Auto) Lymph # (Auto) Hunt # (Auto) Eos # (Auto) Baso # (Auto) Immature Gran # (Auto) Sodium Potassium Chloride Carbon Dioxide Anion Gap BUN Creatinine Est Cr Clr Drug Dosing Est GFR ( Amer) Est GFR (Non-Af Amer) BUN/Creatinine Ratio Glucose Calcium Total Bilirubin AST ALT Alkaline Phosphatase Total Protein Albumin Globulin Albumin/Globulin Ratio TSH HCG, Qual Urine Color Yellow Urine Appearance Clear Urine pH 6.0 Ur Specific [place] 1.020 Urine Protein Trace H Urine Glucose (UA) Negative Urine Ketones Negative Urine Blood Trace H Urine Nitrite Negative Urine Bilirubin Negative Urine Urobilinogen Negative Ur Leukocyte Esterase Negative Urine WBC (Auto) 1-5 Urine RBC (Auto) 5-10 H U Hyaline Cast (Auto) 1-5 U Epithel Cells (Auto) >30 H Urine Bacteria (Auto) 1+ H Salicylates Urine Opiates Screen Neg Ur Methadone, Qual Neg Acetaminophen Urine Barbiturates Neg Ur Phencyclidine (PCP) Neg U Amphetamin/Meth Scrn Neg MDMA (Ecstasy) Screen Neg U Benzodiazepines Scrn Neg Ur Cocaine Metabolite Neg U Marijuana (THC) Screen Neg Ethyl Alcohol mg/dL SARS-CoV-2, RNA, NAAT NEGATIVE Hospital Course (1) Major depressive disorder, recurrent, moderate: (2) Alcohol use disorder: (3) Depression with suicidal ideation: 08/27/21: Continues to tolerate medications without any side effects. Excited and ready for discharge. Looking forward to getting to be around her boyfriend and a friend who is visiting this weekend. 08/26/21: Continue sertraline 50mg qd and trazodone 50mg qhs. Has been reflecting in groups and with [facility] counselors on ideas and steps for future career plans. 08/25/21: Continue sertraline 50mg qd. Increase trazodone to 50mg qhs for insomnia. Ongoing motivational interviewing. 08/24/21: Increase sertraline to 50mg qd. Continue trazodone 25mg qhs. Family meeting held with her sister. Remains motivated to avoid alcohol. 08/23/21: The patient was admitted to the [facility] ([facility] mental [facility] unit) on q15 min checks (behavioral with suicide precautions) for safety. The patient will participate in group, recreational, and milieu therapies and will be offered additional individual and family sessions as clinically appropriate. -sertraline 25mg qd -trazodone 25 mg qhs Mental Health & Subst Abuse Tx Psychiatrist Name of Psychiatrist: Krystian Campbell Psychiatrist's Date of Appointment with Psychiatrist: 09/24/21 Time of Appointment with Psychiatrist: 10:15 AM Psychiatric Appointment Comment: [address] [facility] [facility] [address], [place] [address] Psychiatrist Release of Information: Obtained, Reviewed and Signed Therapist Name of Therapist: Romana Higuera Therapist's Date of Therapist Appointment: 09/02/21 Time of Therapist Appointment: 9:30 a.m. Therapy Appointment Comment: [address] [facility], [address], [place] Therapist Release of Information: Obtained, Reviewed and Signed Post Discharge Appointments Primary Care Physician Name Of Family Doctor: [facility] Time of Appointment with PCP: Please follow up as needed Provider Appointment Comment: [address] [facility] Primary Care Release of Information: Obtained, Reviewed and Signed Smoking Cessation Counseling Tobacco Cessation Medication Prescribed at Discharge: Offered & Pt Refused Tobacco Cessation Counseling: Offered and Refused Other #1: Name of Aftercare Appointment: [facility] - [facility]ne Phone Number of Aftercare Appointment: [phone] Date of Aftercare Appointment: 08/28/21 Time of Aftercare Appointment: 1:00 pm Aftercare Appointment Comment: Via Teams meeting - check [employer] email for link #2: Name of Aftercare Appointment: [facility] - MAINFRAME PROGRAMMER Phone Number of Aftercare Appointment: [phone] Date of Aftercare Appointment: 10/03/21 Time of Aftercare Appointment: 12:00 p.m. Aftercare Appointment Comment: If you'd like it sooner, please call the hospital imaging dept to schedule Release of Information Aftercare Appointment: Obtained, Reviewed and Signed Contact Information Discharge Discharge Address: [address] [facility] [place], [place] Discharge Plan Discharge Items Patient Disposition: Hospice - Home Reason For Visit: MHID, THOUGHTS OF SELF HARM Discharge Diagnosis: Major Depressive Disorder Activity: Resume your previous activity Non-emergency contact: Primary Care Provider, Psychiatrist and Therapist Call non-emergency contact if: you have any medication questions and your symptoms worsen Follow-up/Referrals: Melissa Cloud [Primary Care Provider] - Diet: Regular Addtl Attending Provider Instructions: SPECIAL CARE INSTRUCTIONS: 1. Follow through with your scheduled aftercare appointments. If unable to keep an appointment, please call to reschedule. 2. Take your medication only as prescribed. Medication should not be changed or stopped without the approval of your doctor. In the event of worsening symptoms or concerns about side effects, contact your doctor immediately. 3. Utilize new healthy coping skills, anger management skills, and stress management skills learned during your hospitalization. Journal feelings and process them with a support person. Identify stressors or situations that may result in relapse, deterioration or inappropriate behaviors and develop a plan to deal with those issues. 4. If your coping skills are ineffective and you are in crisis, contact your outpatient providers for direction. If unable to reach your providers, please call the [facility] CRISIS LINE AT , go to the [facility] walk-in center at [address] [place] [address] [facility], or go to the closest Emergency Room. 5. Avoid alcohol and un-prescribed drugs. 6. You have been provided with the Mental Health Advance Directives Pamphlet for your review. 7. Your condition is stable for discharge to outpatient level of care, but recovery is an ongoing process. Ifthoughts to harm yourself or others return, follow the safety plan developed during your stay. Planning for a safe return home includes securing weapons. Our treatment team recommends weaponsbe removed from the home until your outpatient provider reassesses your progress. In rare cases where the items themselvescannot be removed, guns and ammunitionshould be secured separatelyand keys stored by a reliable personoutside of the home. If you were admitted on an involuntary commitment, the police or other legal authorities may be involved in this process. AFTERCARE APPOINTMENTS: * Please call your insurance company prior to your scheduled appointment to confirm your aftercare providers are covered. Take your insurance information to your appointments. WHO TO CALL AND WHEN: Medical Emergencies: For questions or emergencies related to your hospital stay, please contact the Inpatient Behavioral Health Unit at [phone]. A pumper gager apprentice is on-call 25/01 for the Behavioral Health Unit for emergencies At any time you feel your situation is an emergency, you may also call 911 immediately. Pending Studies at Discharge: No Stand-Alone Forms: My [facility] Medications and DC Order Prescriptions: New trazodone 50 mg Tablet 50 mg PO HS 30 Days Qty: 30 RF: 0 sertraline 50 mg Tablet 50 mg PO QAM 30 Days Qty: 30 RF: 0 Continued L norgest/e.estradiol-e.estrad [Camrese] 0.15 mg-30 mcg (84)/10 mcg (7) Tablets,Dose Pack,3 Month 1 tab PO QAM RF: 0 Discharge Orders: Discharge Order (Routine); Ordered 08/27/21 Ordered By: Deann Madden/Other Patient Handouts: Depression: Tips to Help Yourself Admission Data Admit Date/Time: 08/22/21 16:52 Attending Provider: Daniela Byrnes Admit Provider: Daniela Byrnes Primary Care Provider: Melissa Cloud Other Interventions: Discharge Summary Assessment (RN) Last Done: 08/27/21 10:33 PSY Interdisciplinary Discharge Planning Last Done: 08/27/21 10:33 Coding Level of Care Code 66385 D/C day mgmt > 30 min Diagnoses Major depressive disorder, recurrent, moderate F33.1 Alcohol use disorder Depression with suicidal ideation F32.A; R45.851 Time Spent (min) 40
== END 2021-08-27 11:55 | disposition hospice, home (50) | DRG 885 ==
LOC: ED 06:49 → 3S 16:48